=== PATIENT | female | born 1990 | race American Indian/Alaskan Native ===

== ENCOUNTER 2016-09-20 06:20 | Emergency (ER) | payer OTHER ==
--- NOTE | 2016-09-20 07:19 | Ultrasound Report ---
OB ULTRASOUND GREATER THAN 14 WEEKS INDICATION: , lower abdominal pain. COMPARISON: None similar. TECHNIQUE: Transabdominal grayscale ultrasound with Doppler interrogation. Gestation: William Position: Transverse, head maternal right Amniotic Fluid: WNL (< 24 weeks, Subjective) Placenta: Posterior Placental Grade: 0 Heart Rate: 156 BPM Cervical length: 3.3 cm (Normal > 3 cm) It is too early for a anatomical survey BPD: 3.1 cm = 15 w 5 d HC: 11.5 cm = 15 w 5 d AC: 9.6 cm = 15 w 5 d FL: 1.8 cm = 15 w 1 d HC/AC Ratio: 1.2 Cephalic Index: 87.1 LMP: 06/06/2016 Clinical age = 15 w 1 d EDC: 03/13/2017 US Gest. Age = 15 w 4 d EDC: 03/10/2017 CONCLUSION: Single, viable intrauterine gestation with ultrasound estimated age of 15 weeks and 4 days and EDC of 03/10/2017, currently in transverse lie with details, as above. Thank you for the opportunity to participate in this patient's care.
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
[2016-09-20 08:01] VITALS: BP 108/70
== END 2016-09-20 07:52 | disposition home or self-care (01) ==
LOC: ED 06:20
DX: O9A.211 Injury, poisoning and certain other consequences of external causes complicating pregnancy, first trimester (principal); S30.1XXA Contusion of abdominal wall, initial encounter; J45.909 Unspecified asthma, uncomplicated; Z3A.15 15 weeks gestation of pregnancy; V49.49XA Driver injured in collision with other motor vehicles in traffic accident, initial encounter; Y93.9 Activity, unspecified; Y92.9 Unspecified place or not applicable; Y99.9 Unspecified external cause status
CPT/HCPCS: 76805; 99283

== ENCOUNTER 2017-01-15 09:33 | Outpatient (CLI) | payer OTHER ==
[2017-01-15] MEDS ORDERED: LACTATED RINGERS 1,000 ML IV ONE (11:19)
[2017-01-15 12:00] VITALS: BP 90/54
[2017-01-15 12:18] LABS: Bacteria,Urine 2+ /HPF (Negative); Bilirubin,Urine NEG (Negative); Blood,Urine NEG (Negative); Ketones,Urine TR mg/dL (Negative); Leukocyte Esterase,Urine LG (Negative); Mucus,Urine FEW /HPF; Nitrite,Urine NEG (Negative)
== END 2017-01-15 12:31 | disposition home or self-care (01) ==
LOC: TRG 09:33
PROVIDERS: ATTEND Obstetrics & Gynecology Gynecology
DX: O47.03 False labor before 37 completed weeks of gestation, third trimester (principal); Z3A.32 32 weeks gestation of pregnancy
CPT/HCPCS: 59025; 81001

== ENCOUNTER 2017-03-06 10:15 | Inpatient (IN) | payer OTHER ==
[2017-03-06] MEDS ORDERED: ePHEDrine SULFATE IV PRN (12:27)
[2017-03-06] MEDS ORDERED: BRETHINE SUB-Q PRN (12:27)
[2017-03-06] MEDS ORDERED: MINERAL OIL PO PRN (12:27)
[2017-03-06] MEDS ORDERED: ZOFRAN IV PRN ×2 (12:27→21:14)
[2017-03-06] MEDS ORDERED: BRETHINE IVP PRN (12:27)
[2017-03-06] MEDS ORDERED: XYLOCAINE 2% INFILTRATI ONE (12:27)
[2017-03-06] MEDS ORDERED: SUBLIMAZE IV PRN (12:27)
--- NOTE | 2017-03-06 12:34 | History and Physical Report ---
History of Present Illness Date of examination: 03/06/17 Date of admission: 03/06/17 10:15 Chief complaint: Oligohydramnios History of present illness: 26-year-old 001 at 39+6 wks is [facility] for [facility] due to oligo, she is a [facility] patient. It appears patient had trigeminal neuralgia status post surgery and was being followed by [facility] for above. 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 denies: smoking, alcohol abuse, prescription drug abuse, IV drug use - Obstetrical History Expected Date of Delivery: 03/07/17 Actual Gestation: 39 Week(s) 6 Day(s) : 2 Para: 1 Medications and Allergies Allergies Allergy/AdvReac Type Severity Reaction Status Date / Time No Known Allergies Allergy Verified 07/31/15 10:21 Home Medications Medication Instructions Recorded Confirmed Last Taken Type ALBUTEROL Inhaler [ProAir HFA 2 puff IH QID PRN #1 inhalation 12/08/15 01/15/17 01/01/17 Rx Inhaler] Vit No.130/Iron/Folic 1 tab PO DAILY 01/15/17 01/15/17 Unknown History [ Tablet] Active Meds: Active Medications Influenza Virus Vaccine Quadrival (Fluarix Quad 9230-9319(36 Mos+) 0.5 ml IM .ONCE ONE Stop: 03/07/17 11:09 Review of Systems Constitutional: no fever, no chills, no anorexia, no fatigue, no weakness, no lethargy, no chronic headaches Cardiovascular: no chest pain, no orthopnea, no syncope, no lightheadedness, no shortness of breath, no dyspnea on exertion, no high blood pressure Respiratory: no cough, no cough with sputum, no shortness of breath, no dyspnea on exertion Gastrointestinal: no abdominal pain, no nausea, no vomiting, no heartburn Genitourinary: contractions, no vaginal bleeding, no vaginal discharge, no leakage of fluid - Vital Signs Vital signs: Vital Signs Pulse BP 64 120/70 03/06/17 10:53 03/06/17 10:53 Temp Pulse Resp BP Pulse Ox 97.9 F 74 120/77 03/06/17 10:56 03/06/17 12:22 03/06/17 12:22 - Physical Exam Abdomen: Positive: normal appearance, soft. Negative: distention, tenderness, guarding, rigidity Genitourinary (Female): Positive: normal external genitalia Vulva: both: normal Uterus: Positive: enlarged (EFW ~ 3400) Adnexa: both: normal Extremities: Positive: normal - Obstetrical FHR: category 1 Cervical Dilatation: 4.5 station: -3 Results All other labs normal. Assessment and Plan A: 26-year-old 001 at 39+6 wks in active labor -Cat 1 tarcing P: -Admit -Routine labs -Epidural when necessary -Anticipate normal vaginal delivery - Patient Problems (1) 39 weeks gestation of Current Visit: Yes Status: Acute (2) Active labor at term Current Visit: Yes Status: Acute
[2017-03-06] MEDS ORDERED: PITOCin/NS 30 UNIT/500ML 30 UNITS/500 ML BAG IV SCH ×2 (13:00)
[2017-03-06] MEDS ORDERED: PITOCin/NS 20 UNIT/1000ML DRIP 20 UNITS/1,000 ML BAG IV SCH ×2 (13:00→22:00)
[2017-03-06 13:06] LABS: Hematocrit 33.4 % (30.3-42.9); Hemoglobin 11.2 gm/dl (10.1-14.3); Mean Corpuscular HGB Conc 34 % (30-34); Mean Corpuscular Volume 75 fl (79-97); Platelet Count 209 K/mm3 (140-440); Red Blood Count 4.43 M/mm3 (3.65-5.03); Red Cell Distribution Width 15.9 % (13.2-15.2)
[2017-03-06 13:13] LABS: Mean Corpuscular Hemoglobin 25 pg (28-32)
[2017-03-06] MEDS: LACTATED RINGERS 1,000 ML IV SCH ×3 (14:48→18:23)
[2017-03-06] MEDS ORDERED: fentaNYL-BUPIV 2 MCG/ML-0.125% 200 MCG/100 ML BAG EPIDURAL ONE (16:05)
[2017-03-06] MEDS ORDERED: NARCAN 2 MG/2 ML IV PRN (16:14)
--- NOTE | 2017-03-06 16:14 | Anesthesia Consultation ---
Anesthesia Consult and Med Hx Date of service: 03/06/17 - Airway Anesthetic Teeth Evaluation: Good ROM Head & Neck: Adequate Mental/Hyoid Distance: Adequate Mallampati Class: Class II Intubation Access Assessment: Probably Good - Pre-Operative Health Status ASA Pre-Surgery Classification: ASA2, Emergency Proposed Anesthetic Plan: Epidural, Spinal - Pulmonary Hx Asthma: No COPD: No Hx Pneumonia: No - Cardiovascular System Hx Hypertension: No - Central Nervous System Hx Seizures: No Hx Psychiatric Problems: No - Endocrine Hx Renal Disease: No Hx End Stage Renal Disease: No Hx Hypothyroidism: No Hx Hyperthyroidism: No - Hematic Hx Anemia: No Hx Sickle Cell Disease: No - Other Systems Hx Alcohol Use: No - Additional Comments Anesthesia Medical History Comments: Will avoid tattoo ink on back when inserting epidural needle.
[2017-03-06] MEDS ORDERED: fentaNYL-BUPIV 2 MCG/ML-0.125% 200 MCG/100 ML BAG EPIDURAL SCH (17:00)
--- NOTE | 2017-03-06 17:03 | Progress Note ---
Assessment and Plan A: 26-year-old 001 at 39+6 wks in active labor -Cat 1 tarcing -on Pit at 4 mu/min P: -Continue to increase Pit -Anticipate - Patient Problems (1) 39 weeks gestation of Current Visit: Yes Status: Acute (2) Active labor at term Current Visit: Yes Status: Acute Subjective - Subjective Date of service: 03/06/17 Interval history: 26-year-old 001 at 39+6 wks is referred from [facility] office for induction due to oligo, she is a [facility] patient. It appears patient had trigeminal neuralgia status post surgery and was being followed by [facility] for above. course has been unremarkable she is GBS negative On L&D, she is 4 cm dilated Patient reports: new complaints, movement normal, contractions, no loss of fluid, no vaginal bleeding Objective - Vital Signs Vital Signs: Vital Signs - 12hr 03/06/17 03/06/17 03/06/17 10:53 10:56 11:23 Temperature 97.9 F Pulse Rate 64 71 Blood Pressure 120/70 118/76 03/06/17 03/06/17 03/06/17 11:54 12:22 12:52 Temperature Pulse Rate 70 74 74 Blood Pressure 113/76 120/77 132/82 03/06/17 03/06/17 03/06/17 13:23 13:53 14:24 Temperature Pulse Rate 70 64 64 Blood Pressure 122/80 104/63 110/73 03/06/17 03/06/17 03/06/17 14:53 15:22 15:53 Temperature Pulse Rate 74 65 69 Blood Pressure 116/71 114/66 129/70 03/06/17 03/06/17 03/06/17 15:58 16:03 16:08 Temperature Pulse Rate 82 80 72 Blood Pressure 138/71 127/62 110/56 03/06/17 03/06/17 03/06/17 16:14 16:17 16:20 Temperature Pulse Rate 68 57 L 75 Blood Pressure 107/57 106/57 147/60 03/06/17 03/06/17 03/06/17 16:25 16:29 16:33 Temperature Pulse Rate 75 71 68 Blood Pressure 109/65 125/65 118/68 03/06/17 03/06/17 03/06/17 16:38 16:43 16:50 Temperature Pulse Rate 65 69 75 Blood Pressure 126/70 111/65 112/66 03/06/17 03/06/17 16:59 17:03 Temperature Pulse Rate 66 80 Blood Pressure 117/67 118/70 - Exam FHR: category 1 Cervical Dilatation: 5 station: -3 - Labs Labs: Abnormal Labs 03/06/17 11:55 MCV 75 L MCH 25 L RDW 15.9 H Laboratory Results - last 24 hr 03/06/17 03/06/17 11:55 11:55 WBC 7.0 RBC 4.43 Hgb 11.2 Hct 33.4 MCV 75 L MCH 25 L MCHC 34 RDW 15.9 H Plt Count 209 Blood Type AB POSITIVE Antibody Screen Negative
--- NOTE | 2017-03-06 19:58 | Progress Note ---
Assessment and Plan - Patient Problems (1) 39 weeks gestation of Current Visit: Yes Status: Acute (2) Active labor at term Current Visit: Yes Status: Acute Subjective - Subjective Date of service: 03/06/17 Interval history: now 9 cm and -1 station. AROMed with clear fluid Patient reports: new complaints, loss of fluid, movement normal, contractions, no vaginal bleeding Objective - Vital Signs Vital Signs: Vital Signs - 12hr 03/06/17 03/06/17 03/06/17 10:53 10:56 11:23 Temperature 97.9 F Pulse Rate 64 71 Respiratory Rate Blood Pressure 120/70 118/76 Blood Pressure [Right] O2 Sat by Pulse Oximetry 03/06/17 03/06/17 03/06/17 11:54 12:22 12:52 Temperature Pulse Rate 70 74 74 Respiratory Rate Blood Pressure 113/76 120/77 132/82 Blood Pressure [Right] O2 Sat by Pulse Oximetry 03/06/17 03/06/17 03/06/17 13:23 13:53 14:24 Temperature Pulse Rate 70 64 64 Respiratory Rate Blood Pressure 122/80 104/63 110/73 Blood Pressure [Right] O2 Sat by Pulse Oximetry 03/06/17 03/06/17 03/06/17 14:53 15:22 15:53 Temperature Pulse Rate 74 65 69 Respiratory Rate Blood Pressure 116/71 114/66 129/70 Blood Pressure [Right] O2 Sat by Pulse Oximetry 03/06/17 03/06/17 03/06/17 15:58 16:03 16:08 Temperature Pulse Rate 82 80 72 Respiratory Rate Blood Pressure 138/71 127/62 110/56 Blood Pressure [Right] O2 Sat by Pulse Oximetry 03/06/17 03/06/17 03/06/17 16:14 16:17 16:20 Temperature Pulse Rate 68 57 L 75 Respiratory Rate Blood Pressure 107/57 106/57 147/60 Blood Pressure [Right] O2 Sat by Pulse Oximetry 03/06/17 03/06/17 03/06/17 16:25 16:29 16:33 Temperature Pulse Rate 75 71 68 Respiratory Rate Blood Pressure 109/65 125/65 118/68 Blood Pressure [Right] O2 Sat by Pulse Oximetry 03/06/17 03/06/17 03/06/17 16:38 16:43 16:50 Temperature Pulse Rate 65 69 75 Respiratory Rate Blood Pressure 126/70 111/65 112/66 Blood Pressure [Right] O2 Sat by Pulse Oximetry 03/06/17 03/06/17 03/06/17 16:59 17:03 17:09 Temperature Pulse Rate 66 80 76 Respiratory Rate Blood Pressure 117/67 118/70 122/74 Blood Pressure [Right] O2 Sat by Pulse Oximetry 03/06/17 03/06/17 03/06/17 17:13 17:19 17:29 Temperature Pulse Rate 79 82 77 Respiratory Rate Blood Pressure 116/67 133/77 123/71 Blood Pressure [Right] O2 Sat by Pulse Oximetry 03/06/17 03/06/17 03/06/17 17:33 17:38 17:44 Temperature Pulse Rate 81 70 75 Respiratory Rate Blood Pressure 122/71 119/70 127/77 Blood Pressure [Right] O2 Sat by Pulse Oximetry 03/06/17 03/06/17 03/06/17 17:49 17:54 18:00 Temperature Pulse Rate 65 82 71 Respiratory Rate Blood Pressure 121/84 124/83 124/76 Blood Pressure [Right] O2 Sat by Pulse Oximetry 03/06/17 03/06/17 03/06/17 18:04 18:09 18:15 Temperature Pulse Rate 67 61 66 Respiratory Rate Blood Pressure 121/73 119/69 126/68 Blood Pressure [Right] O2 Sat by Pulse Oximetry 03/06/17 03/06/17 03/06/17 18:18 18:23 18:29 Temperature Pulse Rate 62 64 65 Respiratory Rate Blood Pressure 121/69 121/72 104/62 Blood Pressure [Right] O2 Sat by Pulse Oximetry 03/06/17 03/06/17 03/06/17 18:33 18:40 18:44 Temperature Pulse Rate 64 61 64 Respiratory Rate Blood Pressure 99/62 107/58 112/69 Blood Pressure [Right] O2 Sat by Pulse Oximetry 03/06/17 03/06/17 03/06/17 18:50 18:55 19:00 Temperature Pulse Rate 61 66 63 Respiratory Rate Blood Pressure 112/65 130/76 116/63 Blood Pressure [Right] O2 Sat by Pulse Oximetry 03/06/17 03/06/17 03/06/17 19:04 19:25 19:32 Temperature 98.4 F Pulse Rate 71 75 77 Respiratory 18 Rate Blood Pressure 120/61 Blood Pressure 120/61 [Right] O2 Sat by Pulse 100 100 Oximetry 03/06/17 03/06/17 03/06/17 19:36 19:37 19:40 Temperature Pulse Rate 75 86 Respiratory Rate Blood Pressure 132/67 Blood Pressure [Right] O2 Sat by Pulse 98 57 L Oximetry 03/06/17 03/06/17 03/06/17 19:42 19:47 19:52 Temperature Pulse Rate 92 H 95 H 86 Respiratory Rate Blood Pressure Blood Pressure [Right] O2 Sat by Pulse 100 100 100 Oximetry 03/06/17 19:57 Temperature Pulse Rate 95 H Respiratory Rate Blood Pressure Blood Pressure [Right] O2 Sat by Pulse 100 Oximetry - Exam FHR: category 1 Cervical Dilatation: 9 station: -1 - Labs Labs: Abnormal Labs 03/06/17 11:55 MCV 75 L MCH 25 L RDW 15.9 H Laboratory Results - last 24 hr 03/06/17 03/06/17 11:55 11:55 WBC 7.0 RBC 4.43 Hgb 11.2 Hct 33.4 MCV 75 L MCH 25 L MCHC 34 RDW 15.9 H Plt Count 209 Blood Type AB POSITIVE Antibody Screen Negative
--- NOTE | 2017-03-06 21:11 | Procedure Note ---
OB Delivery Note - Delivery Date of Delivery: 03/06/17 Surgeon: KATERINE VALENTIN Estimated blood loss: 100cc - Vaginal Delivery presentation: vertex Delivery position: OA Delivery induction: none Delivery augmentation: pitocin Delivery monitor: external FHT, external uterine Route of delivery: Delivery placenta: spontaneous Delivery cord: 3 umbilical vessels Episiotomy: none Delivery laceration: 1st degree (non-bleeding not repaired) Anesthesia: epidural - A at 1 minute: 8 at 5 minutes: 9 Infant Gender: Male (time of delivery was 20:49, infant weight 6 lbs. 7 oz. or 2923 g)
[2017-03-06] MEDS ORDERED: PHENERGAN PR PRN (21:14)
[2017-03-06] MEDS ORDERED: LANSINOH TP PRN (21:14)
[2017-03-06] MEDS ORDERED: TYLENOL PO PRN (21:14)
[2017-03-06] MEDS ORDERED: DULCOLAX PR PRN (21:14)
[2017-03-06] MEDS ORDERED: NORCO 5/325 PO PRN (21:14)
[2017-03-06] MEDS ORDERED: TUCKS PAD TP PRN (21:14)
[2017-03-06] MEDS ORDERED: PHENERGAN PO PRN (21:14)
[2017-03-06] MEDS ORDERED: BENADRYL PO PRN (21:14)
[2017-03-06] MEDS ORDERED: MILK OF MAGNESIA PO PRN (21:14)
[2017-03-06] MEDS ORDERED: SODIUM CHLORIDE FLUSH SYRINGE 10 ML IV NR (22:00)
[2017-03-06] MEDS: COLACE PO SCH (23:13)
[2017-03-06] MEDS: SENOKOT S PO SCH (23:13)
[2017-03-06] MEDS: MOTRIN PO SCH (23:14)
[2017-03-06] MEDS: FEOSOL PO SCH (23:14)
[2017-03-07] MEDS: MOTRIN PO SCH ×3 (05:08→23:41)
--- NOTE | 2017-03-07 08:17 | Progress Note ---
Assessment and Plan PPD# 1 s/p -Doing well P: -Continue routine care -Anticipate discharge in 24-48 hours - Patient Problems (1) (normal spontaneous vaginal delivery) Current Visit: Yes Status: Acute (2) 39 weeks gestation of Current Visit: Yes Status: Acute (3) Active labor at term Current Visit: Yes Status: Acute Subjective - Subjective Date of service: 03/07/17 Principal diagnosis: PPD# 1 Interval history: Patient seen and examined, stable doing well. No issues Patient reports: appetite normal, voiding normally, pain well controlled, flatus , ambulating normally, no dizzy ambulation, no nauseated : doing well Objective - Vital Signs Latest vital signs: Vital Signs Temp Pulse Resp BP BP Pulse Ox 03/07/17 04:00 98.3 F 80 18 120/75 03/06/17 22:48 98.9 F 62 20 138/73 03/06/17 22:04 76 131/72 03/06/17 22:02 73 100 03/06/17 21:57 74 100 03/06/17 21:52 74 100 03/06/17 21:47 85 99 03/06/17 21:42 86 100 03/06/17 21:37 88 100 03/06/17 21:34 95 H 142/72 03/06/17 21:32 98.2 F 84 18 142/72 99 03/06/17 21:28 89 100 03/06/17 21:25 94 H 89 03/06/17 21:23 96 H 98 03/06/17 21:19 98.6 F 89 18 109/69 98 03/06/17 21:18 98 H 100 03/06/17 21:13 82 100 03/06/17 21:04 99 H 109/69 03/06/17 20:36 125 H 163/66 03/06/17 20:29 50 L 63 L 03/06/17 20:27 99 H 100 03/06/17 20:22 55 L 64 L 03/06/17 20:17 105 H 100 03/06/17 20:12 97 H 99 03/06/17 20:07 90 98 03/06/17 20:06 90 137/64 03/06/17 20:02 89 100 03/06/17 19:57 95 H 100 01/03/18 19:52 86 100 03/06/17 19:47 95 H 100 03/06/17 19:42 92 H 100 03/06/17 19:40 57 L 03/06/17 19:37 86 98 03/06/17 19:36 75 132/67 03/06/17 19:32 77 100 03/06/17 19:25 98.4 F 75 18 120/61 100 03/06/17 19:04 71 120/61 03/06/17 19:00 63 116/63 03/06/17 18:55 66 130/76 03/06/17 18:50 61 112/65 03/06/17 18:44 64 112/69 03/06/17 18:40 61 107/58 03/06/17 18:33 64 99/62 03/06/17 18:29 65 104/62 03/06/17 18:23 64 121/72 03/06/17 18:18 62 121/69 03/06/17 18:15 66 126/68 03/06/17 18:09 61 119/69 03/06/17 18:04 67 121/73 03/06/17 18:00 71 124/76 03/06/17 17:54 82 124/83 03/06/17 17:49 65 121/84 03/06/17 17:44 75 127/77 03/06/17 17:38 70 119/70 03/06/17 17:33 81 122/71 03/06/17 17:29 77 123/71 03/06/17 17:19 82 133/77 03/06/17 17:13 79 116/67 03/06/17 17:09 76 122/74 03/06/17 17:03 80 118/70 03/06/17 16:59 66 117/67 03/06/17 16:50 75 112/66 03/06/17 16:43 69 111/65 03/06/17 16:38 65 126/70 03/06/17 16:33 68 118/68 03/06/17 16:29 71 125/65 03/06/17 16:25 75 109/65 03/06/17 16:20 75 147/60 03/06/17 16:17 57 L 106/57 03/06/17 16:14 68 107/57 03/06/17 16:08 72 110/56 01/03/18 16:03 80 127/62 03/06/17 15:58 82 138/71 03/06/17 15:53 69 129/70 03/06/17 15:22 65 114/66 03/06/17 14:53 74 116/71 03/06/17 14:24 64 110/73 03/06/17 13:53 64 104/63 03/06/17 13:23 70 122/80 03/06/17 12:52 74 132/82 03/06/17 12:22 74 120/77 03/06/17 11:54 70 113/76 03/06/17 11:23 71 118/76 03/06/17 10:56 97.9 F 03/06/17 10:53 64 120/70 Intake and Output 03/06/17 03/07/17 03/07/17 23:59 07:59 15:59 Intake Total 352.083 600 Output Total 300 600 Balance 52.083 0 Intake: IV 352.083 Lactated Ringers 1,000 ml 352.083 @ 125 mls/hr IV DIRECT MELINA Rx#:[id number] Intake, Free Water 600 Output: Urine 300 600 Indwelling Catheter 300 Void 600 Other: Total, Output Amount 300 400 Estimated Blood Loss 100 - Exam Abdomen: Present: normal appearance, soft. Absent: distention, tenderness, guarding, rigidity Uterus: Present: fundal height below umbilicus. Absent: tenderness Extremities: Present: normal - Labs Labs: Abnormal lab results 03/06/17 Range/Units 11:55 MCV 75 L (79-97) fl MCH 25 L (28-32) pg RDW 15.9 H (13.2-15.2) %
--- NOTE | 2017-03-07 08:19 | Discharge Summary ---
Providers - Providers Date of Admission: 03/06/17 10:15 Date of discharge: 03/08/17 Attending physician: KATERINE VALENTIN Primary care physician: KATERINE VALENTIN Hospitalization Reason for admission: induction of labor (IUP at 39 weeks with oligo), IUP at term Delivery: Episiotomy: none Laceration: 1st degree Incision: dry, intact complications: none Discharge diagnosis: IUP at term delivered baby: male Hospital course: Uncomplicated hospital course Condition at discharge: Good Disposition: FL-01 TO HOME OR SELFCARE - Discharge Diagnoses (1) (normal spontaneous vaginal delivery) Status: Acute (2) 39 weeks gestation of Status: Acute (3) Active labor at term Status: Acute Plan - Discharge Medications Prescriptions: HYDROcodone/ACETAMINOPHEN [[place] 5-325 Tablet] 1 each PO Q6HR #7 tablet Ibuprofen [Motrin 600 MG tab] 600 mg PO Q8H PRN #30 tablet PRN Reason: Pain Multivitamin with Iron [Multivitamins with Iron] 1 each PO DAILY #30 tablet - Provider Discharge Summary Activity: no sex for 6 weeks, no heavy lifting 4 weeks, no strenuous exercise Diet: routine Additional instructions: [] Smoking cessation referral if applicable(refer to patient education folder for contact #) [] Refer to [facility]'s [facility] Booklet Call your doctor immediately for: * Fever > 100.5 * Heavy vaginal bleeding ( >1 pad per hour) * Severe persistent headache * Shortness of breath * Reddened, hot, painful area to leg or breast * Drainage or odor from incision. * Keep incision clean and dry at all times and follow doctor's instructions regarding bathing/showering - Follow up plan Follow up: KATERINE VALENTIN MD [Primary Care Provider] - 6 Weeks
[2017-03-07 09:53] LABS: Hematocrit 33.1 % (30.3-42.9); Hemoglobin 11.1 gm/dl (10.1-14.3)
[2017-03-07] MEDS ORDERED: PRENATAL VITAMIN PO SCH (10:00)
[2017-03-07] MEDS ORDERED: Fluarix Quad 2017-2018(36 MOS+ IM ONE (11:08)
[2017-03-07] MEDS: FEOSOL PO SCH ×2 (13:55→21:36)
[2017-03-07] MEDS: COLACE PO SCH (21:36)
[2017-03-07] MEDS: SENOKOT S PO SCH (23:42)
[2017-03-08] MEDS: MOTRIN PO SCH ×2 (05:21→12:40)
[2017-03-08] MEDS ORDERED: BOOSTRIX IM ONE (06:00)
[2017-03-08] MEDS: FEOSOL PO SCH (12:40)
[2017-03-08] MEDS: COLACE PO SCH (12:41)
[2017-03-08 16:51] VITALS: BP 121/80
== END 2017-03-08 17:10 | disposition home or self-care (01) | DRG 775 ==
LOC: LD 10:15 → OB 22:49
PROVIDERS: ADMIT Obstetrics & Gynecology Gynecology; ATTEND Obstetrics & Gynecology Gynecology
PROC: 10E0XZZ Delivery of Products of Conception, External Approach (ICD-10-PCS; principal; 2017-03-06)
PROC: 3E0R3BZ Introduction of Anesthetic Agent into Spinal Canal, Percutaneous Approach (ICD-10-PCS; 2017-03-06)
PROC: 00HU33Z Insertion of Infusion Device into Spinal Canal, Percutaneous Approach (ICD-10-PCS; 2017-03-06)
DX: O41.03X0 Oligohydramnios, third trimester, not applicable or unspecified (principal); Z3A.39 39 weeks gestation of pregnancy; Z37.0 Single live birth; O70.0 First degree perineal laceration during delivery
CPT/HCPCS: 36415; 85014; 85018; 85027; 86592; 86706; 86850; 86900; 86901; 90471; 90686; 90715; 99211; A6250; G0463; J2590; J7120